=== PATIENT | male | born 1975 | race Caucasian/White ===

== ENCOUNTER 2016-09-18 09:59 | Emergency (ER) | payer MEDICARE, OTHER | END 2016-09-18 11:28 | disposition home or self-care (01) | LOC: FER 09:59 | DX: S39.012A Strain of muscle, fascia and tendon of lower back, initial encounter (principal); F17.210 Nicotine dependence, cigarettes, uncomplicated; X50.0XXA Overexertion from strenuous movement or load, initial encounter | CPT/HCPCS: 72100; J1100; J2800 ==